=== PATIENT | male | born 1950 | race Caucasian/White ===

== ENCOUNTER 2021-04-11 06:08 | Observation (INO) ==
--- NOTE | 2021-03-30 10:03 | PAT Medication Instructions ---
Medication Instructions Date of Service March 30, 2021 Home Medications Medication Instructions Recorded Tariq Marie #1 ea 03/28/21 alfuzosin 10 mg tablet,extended release 24 hr 10 mg PO HS amlodipine 10 mg tablet 10 mg PO QAM aspirin 81 mg tablet,delayed release (Aspirin Low Dose) 162 mg PO HS carvedilol 25 mg tablet 25 mg PO BID glucosamine sulfate 500 mg tablet (Glucosamine) 1,000 mg PO QAM metformin 500 mg tablet 500 mg PO BID multivitamin 1 tab PO QAM niacin 500 mg tablet 500 mg PO HS pravastatin 40 mg tablet 40 mg PO HS lisinopril 20 mg-hydrochlorothiazide 25 mg tablet 1 tab PO QAM ASK your prescriber and surgeon aspirin 81 mg tablet,delayed release (Aspirin Low Dose) 162 mg PO HS STOP taking 2 weeks before surgery (or as soon as possible if surgery is within 2 weeks) glucosamine sulfate 500 mg tablet (Glucosamine) 1,000 mg PO QAM STOP taking 48 hours before surgery niacin 500 mg tablet 500 mg PO HS DO NOT take the morning of surgery metformin 500 mg tablet 500 mg PO BID multivitamin 1 tab PO QAM lisinopril 20 mg-hydrochlorothiazide 25 mg tablet 1 tab PO QAM Take morning of surgery With a small sip of water, OTHERWISE NOTHING TO EAT OR DRINK AFTER MIDNIGHT: amlodipine 10 mg tablet 10 mg PO QAM carvedilol 25 mg tablet 25 mg PO BID Take evening before surgery alfuzosin 10 mg tablet,extended release 24 hr 10 mg PO HS carvedilol 25 mg tablet 25 mg PO BID metformin 500 mg tablet 500 mg PO BID niacin 500 mg tablet 500 mg PO HS pravastatin 40 mg tablet 40 mg PO HS Other Notes If you have any questions please call us at [phone] or [phone] or [phone] or [phone]
--- NOTE | 2021-03-31 11:56 | Anesthesiology Consultation ---
Date of Service March 31, 2021 Assessment & Plan (1) Encounter for pre-operative examination: - Abnormal preop EKG: Notes ST/TWA, consider anterolateral ischemia on unconfirmed preop EKG. EKG forwarded to cardiology for review. Awaiting opt imization response. - Aortic stenosis: Patient reports hx of aortic stenosis under surveillance by [facility]. Discussed SAB vs. general anesthesia. Awaiting most recent cardiology office visit note and most recent ECHO. - COVID screening: Per assessment on 03/31: No known COVID-19 positive contacts or current COVID-19 related symptoms. Travel screen- returned from [place] 03/27. Patient is considering travel to [place] and [place] prior to upcoming surgery. Most recent travel in proximity to surgery will be visiting son in [place] 03/31-04/03 (son, patient and are all vaccinated). Surgeon arranging preop COVID testing (scheduled 04/07; [place]). Awaiting results. Preop COVID testing will be done 4 days prior to return from travel > will order cepheid preop for AM DOS. - Check BSG AM DOS Chart Review Chart Review: Patient seen in Pre Admission Testing Teaching & Discussion Pre-Anesthesia Teaching/Discussion Notes: Instructed NPO after midnight before surgery,except medications with 15 cc of water. Medication instructions provided according to the PAT guidelines. History Surgery Operation Date: 04/11/21 13:05 Proposed Procedures p Right Total Knee Arthroplasty - Cameron Temple MD Height/Weight Height: 5 ft 9 in Weight: 115.9 kg Allergies Allergy/AdvReac Type Severity Reaction Status Date / Time No Known Allergies Allergy Verified 03/30/21 08:58 Medications Home Medications Medication Instructions Recorded Confirmed Last Taken Wheeled Walker #1 ea 03/28/21 Unknown alfuzosin 10 mg tablet,extended 10 mg PO HS 03/28/21 03/30/21 Unknown release 24 hr amlodipine 10 mg tablet 10 mg PO QAM 03/28/21 03/30/21 Unknown aspirin 81 mg tablet,delayed 162 mg PO HS 03/28/21 03/30/21 Unknown release (Aspirin Low Dose) carvedilol 25 mg tablet 25 mg PO BID 03/28/21 03/30/21 Unknown glucosamine sulfate 500 mg tablet 1,000 mg PO QAM 03/28/21 03/30/21 Unknown (Glucosamine) metformin 500 mg tablet 500 mg PO BID 03/28/21 03/30/21 Unknown multivitamin 1 tab PO QAM 03/28/21 03/30/21 Unknown niacin 500 mg tablet 500 mg PO HS 03/28/21 03/30/21 Unknown pravastatin 40 mg tablet 40 mg PO HS 03/28/21 03/30/21 Unknown lisinopril 20 1 tab PO QAM 03/30/21 03/30/21 Unknown mg-hydrochlorothiazide 25 mg tablet Past Medical History Medical History Aortic stenosis Bone spur Neck x-ray 01/2021 noted degenerative spondylosis of the cervical spine with multilevel disc space degeneration from C3-C4 through C6-C7, loss of lordosis consistent with underlying muscle spasm > Left shoulder mild cramping/ticking sensation occasionally Diabetes NIDDM Enlarged prostate HTN (hypertension) Hypercholesteremia Long QT syndrome Found on genetic testing (Slack) > subsequent cardio workup said "not to be concerned" Exercise / Class Metabolic Activity II 4-5 Yardwork/Stairs/Walk up hill (one FS (no CP, no SOB)) Past Family History Family History Father Pre-diabetes Past Surgical History Surgical History History of colonoscopy History of hand surgery Left History of tonsillectomy History of umbilical hernia repair Infancy Past Anesthesia History No Hx of Anesthesia Complications and No Family Hx of Anesthesia Complications History of PONV No Hx of PONV and No Hx of Motion Sickness Social History Smoking Status: Former smoker tobacco type: cigarettes Do You Dip or Chew Tobacco: No Smoking End Date: Quit Spring 1982 Hx Alcohol Use: No Hx Substance Use: No substance use type: does not use Review of Systems Patient denies chest pain, shortness of breath, dyspnea on exertion, fever, chills, cough, wheezing, palpitations. Physical Exam Vital Signs VITALS BP 126/69 P 52 TEMP 97.9 SP02 96% RA RESP 16 PHYSICAL Mildly decreased cervical extension range of motion. Full TMJ range of motion. TMD 3.5 finger breaths Mallampati Score 2 Dentition: upper partial Lungs: clear throughout to auscultation Cardiac: regular rate and rhythm, III/ systolic murmur Spine: normal Carotid arteries: negative bruit Extremities: no edema Trimmed richards Lab Results Anesthesia Preop Results Results Anesthesia Widget: WBC 3.87 K/uL (4.8-10.8) L 03/31/21 Hgb 13.8 g/dL (14.0-18.0) L 03/31/21 Hct 40.6 % (42-52) L 03/31/21 Plt 146 K/uL (130-400) 03/31/21 Na 138 mmol/L (136-145) 03/31/21 K 3.8 mmol/L (3.5-5.1) 03/31/21 Cl 107 mmol/L (98-107) 03/31/21 CO2 27 mmol/L (21-32) 03/31/21 BUN 12 mg/dl (7-18) 03/31/21 Creat 0.84 mg/dl (0.6-1.4) 03/31/21 Glucose Level 140 mg/dl (70-99) H 03/31/21 PT 10.8 Seconds (9.0-12.0) 03/31/21 PTT 26.4 Seconds (21.0-31.0) 03/31/21 INR 1.1 (0.9-1.1) 03/31/21 Blood Type A Positive 03/31/21 Antibody Screen NEGATIVE 03/31/21 Lab Comments: Preop labs to be forwarded to PCP for continuity of care. Testing Electrocardiogram Date: 03/31/21 SB at 45bpm. Possible inferior infact, age undetermined. ST/TWA, consider anterolaterial ischemia. unconfirmed report. Chest X-Ray Date: 03/31/21 FINDINGS: Cardiac silhouette is upper limits of normal in size. Calcific plaque of the thoracic aorta. No pneumothorax, pleural effusion, airspace consolidation or overt pulmonary edema. Degenerative changes of the shoulders and spine. IMPRESSION: No acute process.
[~2021-04-11 06:08] MED LIST: ACETAMINOPHEN 500 MG TAB PO SCH; BUPIVACAINE LIPOSOME/PF 266 MG, BUPIVACAINE/EPINEPHRINE 50 ML, SODIUM CHLORIDE 0.9% 30 ... INFIL SCH; FAMOTIDINE 20 MG TAB PO SCH; GABAPENTIN 300 MG CAP PO SCH; LR 500ML BOLUS, THEN 15ML/HR IV SCH; LR 60ML/HR IV SCH; METOCLOPRAMIDE HCL 10 MG TABLET PO SCH; TRANEXAMIC ACID 1,000 MG **IV Intra-op IV SCH; ceFAZolin 2000MG 2,000 MG/15 ML SYR IV SCH
--- NOTE | 2021-04-11 06:57 | History & Physical Bridge Note ---
Date of Service April 11, 2021 History & Physical Bridge Note I have examined the patient, reviewed the History & Physical and in the interval since the performance of the History & Physical I have noted the following changes of clinical significance: no changes noted
[2021-04-11] MEDS ORDERED: BUPIVACAINE 0.5 % 5 MG/1 ML PF 10ML VIAL ONE (07:31)
[2021-04-11] MEDS ORDERED: BUPIVACAINE 0.25% 30 ML VIAL ONE ×2 (07:32→08:39)
[2021-04-11] MEDS ORDERED: EPINEPHrine INJ 1 MG/ML AMP ONE ×2 (07:32→08:39)
[2021-04-11] MEDS ORDERED: PROPOFOL IV EMULSION 10 MG/ML 20 ML VIAL IV ONE ×2 (07:34→07:35)
[2021-04-11] MEDS ORDERED: fentaNYL citrate 100 MCG/2 ML VIAL ONE (07:34)
[2021-04-11] MEDS ORDERED: LIDOCAINE 2% 2 ML VIAL/AMP(20MG/ML) INFIL ONE ×2 (07:34→07:35)
[2021-04-11] MEDS ORDERED: MIDAZOLAM HCL 1 MG/ML 2ML VIAL ONE (07:34)
[2021-04-11] MEDS ORDERED: ATROPINE SULFATE 0.1 MG/ML 10ML SYR IV PRN (08:14)
[2021-04-11] MEDS ORDERED: ePHEDrine sulfate 50 MG/ML AMP IV PRN (08:14)
[2021-04-11] MEDS ORDERED: fentaNYL citrate 100 MCG/2 ML VIAL IV PRN (08:14)
[2021-04-11] MEDS ORDERED: HYDROmorphone INJ 2 MG/ML SYR/VIAL IV PRN (08:14)
[2021-04-11] MEDS ORDERED: ONDANSETRON INJ 2 MG/ML 2 ML VIAL IV PRN ×2 (08:14→12:16)
[2021-04-11] MEDS ORDERED: BUPIVACAINE LIPOSOME 1.3% 266 MG/20 ML VIAL ONE (08:38)
[2021-04-11] MEDS ORDERED: SODIUM CHLORIDE 0.9% PF 50 ML VIAL ONE (08:38)
[2021-04-11] MEDS ORDERED: GLYCOPYRROLATE 0.2 MG/ML VIAL ONE (09:14)
[2021-04-11] MEDS ORDERED: KETAMINE 50 MG/5 ML SYRINGE ONE (09:17)
--- NOTE | 2021-04-11 10:51 | Post Operative Brief Note ---
PG Immediate Post Op with CF Date of Surgery April 11, 2021 Pre & Post Diagnosis Operation Date: 04/11/21 08:50 Pre-Op Diagnosis: Right Knee Osteoarthritis, Right Knee Pain Post-Op Diagnosis: Right Knee Osteoarthritis, Right Knee Pain I identified the patient and participated in the time-out.: Yes Procedure Operation Date: 04/11/21 08:50 Actual Procedures p Right Total Knee Arthroplasty(Right) - Cameron Temple MD Surgeon Cameron Temple MD Poll Watcher KASIA Fitzgerald Estimated Blood Loss 50 Findings Consistent with Post-Op Diagnosis Fluids 1000 cc Specimens Specimen Description: A: Right Knee Bone and Tissue Drains Moody Catheter Anesthesia Type Spinal MAC Complications none Disposition Accompanied Patient To Recovery: No
[2021-04-11] MEDS ORDERED: PHARMACY GLYCEMIC MGMT CONSULT PRN (11:00)
--- NOTE | 2021-04-11 11:35 | XRay Report ---
RIGHT KNEE 2 VIEWS History: Right total knee arthroplasty. Degenerative arthritis. Postop. FINDINGS: The patient is status post a right total knee arthroplasty. The hardware is intact. No frac ture or dislocation. Skin roro are in place. IMPRESSION: Right total knee arthroplasty. No evidence for hardware complication. ACT 112: Negative or not required by law. Electronically signed by: Júnior Centeno M.D. 04/11/2021 11:33 AM
--- NOTE | 2021-04-11 11:44 | Anesthesiology Progress Note ---
Date of Service April 11, 2021 Anesthesia Post Procedure Vital Signs Vital Signs: Temp Pulse Pulse Resp BP BP Pulse Ox 04/11/21 11:35 49 L 16 138/68 99 04/11/21 11:25 42 L 14 137/66 96 04/11/21 11:15 45 L 15 133/62 94 04/11/21 11:05 46 L 16 132/68 97 04/11/21 10:58 36.6 C 41 L 16 110/57 L 96 04/11/21 06:36 36.8 C 48 L 20 162/65 H 98 Pain Intensity Right Knee: Pain Intensity: 0 Transfer of Care Handoff Completed per policy Notes Mental Status: alert / awake / arousable and participated in evaluation Patient Amnestic to Procedure: Yes Nausea / Vomiting: adequately controlled Pain: adequately controlled Airway Patency, RR, SpO2: stable & adequate BP & HR: stable & adequate Hydration State: stable & adequate Anesthetic Complications: no major complications apparent and Pt Satisfied with anesthetic care
[2021-04-11] MEDS ORDERED: MAGNESIUM HYDROXIDE SUSP 30 ML UDC PO PRN (12:16)
[2021-04-11] MEDS ORDERED: CARBOHYDRATES FOR HYPOGLYCEMIA PO PRN (12:16)
[2021-04-11] MEDS ORDERED: TAMSULOSIN HCL 0.4 MG CAP PO PRN (12:16)
[2021-04-11] MEDS ORDERED: HYDROmorphone INJ 0.5 MG/0.5 ML SYR IV PRN (12:16)
[2021-04-11] MEDS ORDERED: GLUCOSE 40% GEL 15 GM TUBE PO PRN (12:16)
[2021-04-11] MEDS ORDERED: oxyCODONE HCL IR 5 MG TAB (IMMEDIATE RELEASE) PO PRN (12:16)
[2021-04-11] MEDS ORDERED: METOCLOPRAMIDE HCL INJ 5 MG/ML 2 ML VIAL IV PRN (12:16)
[2021-04-11] MEDS ORDERED: GLUCOSE 10 TABS/TUBE PO PRN (12:16)
[2021-04-11] MEDS ORDERED: DEXTROSE 50% 50 ML SYRINGE IV PRN (12:16)
[2021-04-11] MEDS ORDERED: bisacodyL 10 MG SUPP PR PRN (12:16)
[2021-04-11] MEDS ORDERED: NALOXONE HCL 0.4 MG/1 ML VIAL/CARP IV PRN (12:16)
[2021-04-11] MEDS ORDERED: ALUMINUM/MAGNESIUM SUSP 30 ML UDC PO PRN (12:16)
[2021-04-11] MEDS ORDERED: GLUCAGON FOR INJ 1 MG VIAL SQ PRN (12:16)
--- NOTE | 2021-04-11 13:05 | Pharmacy Report ---
Pharmacy Glycemic Short Note 2 - Date of Service April 11, 2021 - Glycemic Short BSG Results (Last 24 hours): 04/11/21 04/11/21 04/11/21 06:34 11:01 12:17 POC Glucose 177 H 144 H 143 H OUTPATIENT ANTIDIABETIC REGIMEN: * metformin 500 mg BID ASSESSMENT: * Mr Valera is a 71 y/o M with PMH of NIDDM who presents for R knee replacement. POD 0 with no administration of dexamethasone. * Patient's pre-op BSG was 177 mg/dL and post-op BSG was 144 mg/dL. * Start weight-based stress of 2 Novolog. * Dose of Lantus this evening if BSG > 150 mg/dL. Want tight glycemic control for post-operative state. PLAN FOR INPATIENT GLYCEMIC CONTROL: * Hold outpatient oral diabetes medications * Basal insulin * Lantus (per scale) units SQ HS * Bolus insulin * NovoLog per scale ACHS or Q6hrs while NPO * Goal Range: Low 110 mg/dL - High 140 mg/dL * Correction Factor: 20 mg/dL/unit * Nutritional / Prandial insulin per carb ratio of 1 unit per 7 grams CHO consumed PLAN FOR DISCHARGE: * HbA1C ordered
[2021-04-11] MEDS: SODIUM CHLORIDE 0.9% 1000ML 1,000 ML IV SCH ×2 (13:18→20:25)
[2021-04-11] MEDS: INSULIN ASPART 100 UNITS/ML 3 ML PEN SC SCH ×3 (14:20→20:46)
[2021-04-11] MEDS: KETOROLAC TROMETHAMINE 15 MG/ML VIAL IV SCH ×2 (14:23→20:25)
[2021-04-11] MEDS: ceFAZolin 2000MG 2,000 MG/15 ML SYR IV SCH ×2 (16:16→23:39)
[2021-04-11] MEDS: ASCORBIC ACID 500 MG TAB PO SCH (16:50)
[2021-04-11] MEDS ORDERED: TRANEXAMIC ACID / 0.7% NACL 1,000 MG/100 ML BAG IV SCH (17:00)
--- NOTE | 2021-04-11 17:26 | Operative Report ---
Post Operative Report Pre & Post Diagnosis Operation Date: 04/11/21 08:50 Pre-Op Diagnosis: Right Knee Osteoarthritis, Right Knee Pain Post-Op Diagnosis: Right Knee Osteoarthritis, Right Knee Pain I identified the patient and participated in the time-out.: Yes Procedure Operation Date: 04/11/21 08:50 Actual Procedures p Right Total Knee Arthroplasty(Right) - Cameron Temple MD Surgeon Cameron Temple MD Performance Makeup Artist KASIA Fitzgerald Estimated Blood Loss 50 Findings Consistent with Post-Op Diagnosis Operative findings revealed advanced right knee DJD. Extensive grade 4 [id number] disease in the medial and patellofemoral compartments. He had a varus deformity to his knee and about a 10 degree flexion contracture. Moderate-sized joint effusion. Fluids 1000 cc Specimens Right knee sent for pathology. Drains None Anesthesia Type Spinal MAC Complications none Disposition Accompanied Patient To Recovery: No Indications Patient is a 71-year-old gentleman with multiple medical comorbidities had a long history of right knee pain discomfort is gradually progressed over time. Failed all conservative measures. X-rays were advanced right knee DJD. Elected proceed with surgical treatment. Description of Procedure Operative implants consist of: 1. Biomet Vanguard size 70 right posterior stabilized femoral component. 2. Biomet size 79 tibial tray. 3. 10 mm posterior stabilized polyethylene insert. 4. 31 x 8 all polypatella. The patient was taken to the operating, identified, placed on the operating table supine position but a contractors were properly padded. IV antibiotics 5 by anesthesia team. Spinal anesthetic and abductor canal block provided holding area. Moody catheter was placed in sterile fashion. Right thigh turn was then placed in the right lower extremities and prepped draped in usual sterile fashion. The right leg was elevated exsanguinated with use of an Esmarch interspace at 3 mmHg. An anterior approach to the right knee was then performed through longitudinal incision centered over the patella. Sharp dissection was carried through subcutaneous this down the extensor mechanism. Medial parapatellar arthrotomy incision was made. Some subperiosteal dissection was carried out medially. The fat pad was resected beneath patella tendon. Lateral patellofemoral ligament was released. The patella subluxated laterally and the knee was flexed. The osteophytes were taken off distal femur. The ACL and PCL were then released from distal femur the tibia subluxated anteriorly. The external tibial alignment jig was then placed in the interface the tibia and adjusted 14 mm medially. Proximal tibial cut was made remove about 2 mm of bone from the most deficient aspect medial tibial plateau. Tibia was then sized to a size 79. Attention drawn the femur. The distal femur stem with a sharp drop with intramedullary canal was suction. A right 6 degree valgus cutting guide was placed but the distal femoral cutting block was pinned in place. Distal femoral cut was made to take an additional 3 mm bone off distal femur. The femur was then sized to a size 70. The AP cutting block was pinned parallel to the epicondylar axis which was 4 degrees of external rotation. The anterior cut, anterior chamfer, posterior cut, posterior chamfer cuts were made. The box cutting guide was placed in the just slight lateral and the box cut was made. The remnants of the medial and lateral menisci were excised. The osteophytes were taken off the posterior aspect of femur. A trial femoral component was placed. The tibial tray was pinned in maximum external rotation and the drill and stem punch were used to create d efect in proximal tibia for the tibial tray. Knee was then trialed and the 10 mm insert fit most appropriately. Attention drawn the patella. Nupathe the patella was cleaned of all soft tissue. Patella thickness measured 23 mm in thickness cut down to 14. Was sized to a size 31 patella. The lug holes were drilled for the 31 patella. The lateral osteophyte is moved. Patella button was placed. Knee was taken through range of motion and the patella tracked nicely with no thumbs test. Attention drawn to place the permanent components. All trial components were removed. Bone plug was placed in the distal femur limit blood loss. Double batch Palacos G cement was mixed. A Biomet Vanguard size 70 right posterior stabilized femoral component, size 79 tibial tray, a 10 mm posterior stabilized polyethylene insert, and a 31 x 8 all polypatella then cemented in place. The knee was brought out into full extension until cement hardened. Final cement check was then performed. The pericapsular tissues were injected with total 100 cc of combination of 20 cc of Exparel, 30 cc normal saline, 50 cc of quarter percent Marcaine with epinephrine. Patient did receive 1 g tranexamic acid per the tourniquet was then let down for final tourniquet time of 61 minutes. Hemostasis assured use electrocautery. Extensor mechanism closed with combination 1 PDS suture #1 Vicryl suture in [id number] fashion. The extensor mechanism checked and found to be intact the subcutaneous tissue was then closed with 2 Dexon suture in a buried knot fashion skin was closed skin roro. Leg was then cleaned dried and a sterile dressing of Xeroform, 4 x 4's, sterile cast padding, Aly bandage were applied. Patient then transferred to the recovery room in stable condition. Patient tolerated proc edure well and there were no complications. Naveen Fitzgerald, my physician executive chef assistant, was present for the entire procedure. His assistance was essential and required for appropriate patient positioning, prepping and draping, surgical exposure, performing the technical details of the operation, placement the implants, closure of the wound, and placement of the sterile bandage. I attest to the content of the Intraoperative Record and any orders documented therein. Any exceptions are noted below.
[2021-04-11] MEDS: ASPIRIN 81 MG ECTAB PO SCH (20:28)
[2021-04-11] MEDS: carvediloL 25 MG TAB PO SCH (20:31)
[2021-04-11] MEDS: DOCUSATE SODIUM 100 MG CAP PO SCH (20:32)
[2021-04-11] MEDS: TAPENTADOL HCL ER 50 MG TABCR PO SCH (20:33)
[2021-04-11] MEDS ORDERED: NIACIN 500 MG TAB PO SCH (21:00)
[2021-04-11] MEDS ORDERED: ALFUZOSIN HCL 10 MG TAB PO SCH (21:00)
[2021-04-11] MEDS ORDERED: PRAVASTATIN SOD 40 MG TAB PO SCH (21:00)
[2021-04-11] MEDS ORDERED: INSULIN GLARGINE SOLOSTAR 100 UNITS/ML 3 ML PEN SC SCH (21:00)
[2021-04-11] MEDS ORDERED: SENNA 8.6 MG TAB PO SCH (21:00)
[2021-04-11] MEDS: ACETAMINOPHEN 500 MG TAB PO SCH (22:50)
[2021-04-12] MEDS: SODIUM CHLORIDE 0.9% 1000ML 1,000 ML IV SCH (01:46)
[2021-04-12] MEDS: KETOROLAC TROMETHAMINE 15 MG/ML VIAL IV SCH ×2 (01:47→09:01)
[2021-04-12] MEDS: ACETAMINOPHEN 500 MG TAB PO SCH ×2 (06:01→13:08)
[2021-04-12 06:43] LABS: Hematocrit (blood only) 34.8 % (42-52); Hemoglobin 11.9 g/dL (14.0-18.0); Mean Corpuscular Hemoglobin 29.2 pg (25-34); Mean Corpuscular Hgb Conc 34.2 g/dL (32-36); Mean Corpuscular Volume 85.5 fL (80-100); Mean Platelet Volume 10.2 fL (7.4-10.4); Platelet Count 112 K/uL (130-400); RDW Coefficient of Variation 13.3 % (11.5-14.5); RDW Standard Deviation 41.1 fL (36.4-46.3); Red Blood Count 4.07 M/uL (4.7-6.1); White Blood Count 6.05 K/uL (4.8-10.8)
[2021-04-12 07:11] LABS: BUN Creatinine Ratio 14.3 (10-20); Calcium 7.8 mg/dl (8.5-10.1); Creatinine Clr Calc Pharmacy 117.9 ml/min; Est GFR (African American) 108.6 ml/min; Est GFR (Non-African American) 93.7 ml/min; Potassium 3.8 mmol/L (3.5-5.1)
[2021-04-12 07:15] LABS: Estimated Average Glucose 137 mg/dl; Hemoglobin A1C 6.4 % (4.5-5.6)
[2021-04-12] MEDS ORDERED: MULTIVITAMIN TAB PO SCH ×2 (09:00)
[2021-04-12] MEDS ORDERED: amLODIPine BESYLATE 5 MG TAB PO SCH (09:00)
[2021-04-12] MEDS ORDERED: LISINOPRIL/HCTZ 20/25MG 1 TAB PO SCH (09:00)
[2021-04-12] MEDS: ASPIRIN 81 MG ECTAB PO SCH (09:01)
[2021-04-12] MEDS: DOCUSATE SODIUM 100 MG CAP PO SCH (09:01)
[2021-04-12] MEDS: TAPENTADOL HCL ER 50 MG TABCR PO SCH (09:01)
[2021-04-12] MEDS: ASCORBIC ACID 500 MG TAB PO SCH (09:02)
[2021-04-12] MEDS: INSULIN ASPART 100 UNITS/ML 3 ML PEN SC SCH ×2 (09:02→13:07)
[2021-04-12] MEDS: carvediloL 25 MG TAB PO SCH (09:02)
--- NOTE | 2021-04-12 12:54 | Progress Notes ---
DATE OF SERVICE: 04/12/2021 SUBJECTIVE: A 71-year-old gentleman postop day 1 from a right knee replacement. He has done well. Had a pretty good night. Pain is controlled. Therapy has gone well. No chest pain or shortness of breath. Not feeling dizzy or lightheaded. OBJECTIVE: VITAL SIGNS: Temperature is 36.6. Vital signs are stable. PHYSICAL EXAMINATION: GENERAL: Shows a pleasant middle-aged male. He is sitting up at his bedside chair, talking to the t herapist. LUNGS: Clear to auscultation. HEART: Regular rate and rhythm. ABDOMEN: Soft, nontender, nondistended. EXTREMITIES: Grossly neurovascularly intact except as follows: Examination of the right knee reveal s the dressing to be clean, dry and intact. His leg is well aligned. He can dorsiflex and plantarfl ex his foot appropriately. He can do a pretty good straight leg raise. LABORATORY DATA: Hemoglobin 11.9. Hematocrit 34.8. Electrolytes are stable. ASSESSMENT: A 71-year-old gentleman with multiple medical comorbidities, now postoperative day 1 fro m right knee replacement, doing quite well. Therapy has gone well. Pain is controlled. He is neuro logically intact. PLAN: 1. DVT prophylaxis includes thigh-high TEDs, SCDs, and aspirin twice daily. 2. PT, OT, weightbear as tolerated. Right total knee protocol. 3. Pain control, doing pretty well with current pain regimen. 4. Disposition: Plan to discharge to home with some home health likely later today if continues to d o okay in therapy and his pain is controlled. Job ID: [id number]
--- NOTE | 2021-04-15 13:04 | Discharge Summary ---
Date of Service April 15, 2021 Discharge Data Procedures Performed Operation Date: 04/11/21 08:50 Actual Procedures p Right Total Knee Arthroplasty(Right) - Cameron Temple MD Hospital Course (1) Status post total right knee replacement: This is a 71 year old patient admitted on 04/11/21 and underwent total knee arthroplasty. He tolerated the procedure well and there were no complications. Transferred to the PACU post op and later to the orthopedic floor for further care. He was given ancef for antibiotic prophylaxis. He was also given KOBE stockings, SCDs, and aspirin for DVT prophylaxis. Hemoglobin, hematocrit, and vital signs were monitored during his hospital stay and remained stable. Did not require any blood transfusions. There were no complications during his hospital stay. By post op day #1 the patient was tolerating a diabetic diet, pain was reasonably controlled with oral pain medicine, and he was participating in physical therapy. On post op day #1 the patient was discharged home and set up with home health care. He was given printed discharge instructions including prescriptions for extra strength tylenol, aspirin, and oxycodone. Continue physical therapy, weight bearing as tolerated. Continue KOBE stockings. Follow up approximately 2 weeks post op or sooner if there are problems or concerns. Coding Level of Care Code None Diagnoses Status post total right knee replacement Z96.651
== END 2021-04-12 13:58 | disposition home health service (06) ==
LOC: ASU 06:08 → 3E 06:08

== ENCOUNTER 2021-12-07 08:20 | Observation (INO) ==
--- NOTE | 2021-12-01 12:53 | Anesthesiology Consultation ---
Date of Service December 01, 2021 Assessment & Plan (1) Encounter for pre-operative examination: - check BSG am DOS. -Aortic stenosis:Moderateper 05/2021 echo. Patient s/pRight TKA (04/11/21): SAB at L3-L4 (x1 attempt) + PNB at [facility] -Cardiology office visit (06/09/21): "The patient has been doing very well from a cardiac standpoint. Echocardiogram done prior to this visit which showed left ventricular wall ejection fraction of 50 to 55%. When this was compared to his previous echocardiogram it was felt the left ventricular ejection fraction was actually about the same on both of these. Moderate aortic stenosis was reported.. Aortic valve stenosis.. This remained stable.. Patient is asymptomatic.. 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 This is borderline today. Continue to monitor.. Thoracic aortic aneurysm without rupture.. This is only mildly enlarged. We can continue to follow with echocardiograms."Plan to repeat echo for surveillance in 1-2 years. F/U one year recommended. - COVID screening: Per insight leader on 11/30/2021: Travel screen negative, no known COVID-19 positive contacts or current COVID-19 related symptoms in past 2 weeks. Patient vaccinated. Surgeon arranging preop COVID testing, scheduled 12/05/2021. Awaiting results. Chart Review Chart Review: Acceptable Risk for Surgery and Patient NOT seen in Pre Admission Testing History Surgery Operation Date: 12/07/21 10:55 Proposed Procedures p Left Total Knee Replacement - Cameron Temple MD Surgery re-scheduled since 06/10/2021 PAT evaluation. Height/Weight Height: 5 ft 9 in Weight: 115.666 kg Allergies Allergy/AdvReac Type Severity Reaction Status Date / Time No Known Allergies Allergy Verified 08/23/21 11:20 Medications Home Medications Medication Instructions Recorded Confirmed Last Taken Wheeled Walker #1 ea 03/28/21 11/30/21 Unknown alfuzosin 10 mg tablet,extended 10 mg PO HS 03/28/21 11/30/21 04/10/21 22:00 release 24 hr amlodipine 10 mg tablet 10 mg PO QAM 03/28/21 11/30/21 04/11/21 04:30 carvedilol 25 mg tablet 25 mg PO BID 03/28/21 11/30/21 04/11/21 04:30 metformin 500 mg tablet 500 mg PO BID 03/28/21 11/30/21 04/10/21 17:30 multivitamin 1 tab PO QAM 03/28/21 11/30/21 04/10/21 07:00 niacin 500 mg tablet 500 mg PO HS 03/28/21 11/30/21 04/08/21 22:00 pravastatin 40 mg tablet 40 mg PO HS 03/28/21 11/30/21 04/10/21 22:00 lisinopril 20 1 tab PO QAM 03/30/21 11/30/21 04/10/21 07:00 mg-hydrochlorothiazide 25 mg tablet aspirin 81 mg tablet,delayed 81 mg PO BID 06/03/21 11/30/21 Unknown release amoxicillin 500 mg tablet 2,000 mg PO ONCE #4 tab 06/08/21 11/30/21 Unknown antiarthritic combination no.2 900 900 mg PO QAM 11/30/21 11/30/21 Unknown mg tablet (glucosamine-chondroitin) Past Medical History Medical History Aortic stenosis Moderate aortic stenosis (MG 13.9 mmHg, CARSON 1.35 cm) per 05/2021 echo Bone spur Neck x-ray 01/2021 noted degenerative spondylosis of the cervical spine with multilevel disc space degeneration from C3-C4 through C6-C7, loss of lordosis consistent with underlying muscle spasm > Left shoulder mild cramping/ticking sensation occasionally Diabetes NIDDM Enlarged prostate HTN (hypertension) Hypercholesteremia Long QT syndrome Found on genetic testing ([facility]) > subsequent cardio workup said "not to be concerned" Exercise / Class Metabolic Activity II 4-5 Yardwork/Stairs/Walk up hill Past Family History Family History Father Pre-diabetes Other No family history of adverse response to anesthesia Past Surgical History Surgical History History of colonoscopy History of hand surgery Left History of throat surgery Benign lesion excision History of tonsillectomy History of total knee replacement Right TKA (04/11/21): SAB at L3-L4 (x1 attempt) + PNB at [facility] History of umbilical hernia repair Infancy Social History Smoking Status: Former smoker tobacco type: cigarettes Do You Dip or Chew Tobacco: No Smoking End Date: 1982 Hx Alcohol Use: No Hx Substance Use: No substance use type: does not use Review of Systems Patient denied chest pain, shortness of breath, dyspnea on exertion, fever, chills, cough, wheezing, palpitations. Physical Exam Vital Signs VITALS (from 06/10/2021 PAT) BP 133/77 P 58 TEMP 98.1 SP02 96%RA RESP 16 PHYSICAL (from 06/10/2021 PAT) Full cervical extension range of motion. Full TMJ range of motion. TMD 3.5 finger breaths Mallampati Score 2 Dentition: partial upper Lungs: clear throughout to auscultation Cardiac: regular rate and rhythm,III/ systolic murmur Spine: normal Carotid arteries: negative bruit Extremities: no edema Lab Results Anesthesia Preop Results Results Anesthesia Widget: WBC 6.10 K/uL (4.8-10.8) 11/14/21 Hgb 13.6 g/dL (14.0-18.0) L 11/14/21 Hct 39.6 % (42-52) L 11/14/21 Plt 154 K/uL (130-400) 11/14/21 Na 138 mmol/L (136-145) 11/14/21 K 3.7 mmol/L (3.5-5.1) 11/14/21 Cl 105 mmol/L (98-107) 11/14/21 CO2 26 mmol/L (21-32) 11/14/21 BUN 20 mg/dl (6-23) 11/14/21 Creat 0.90 mg/dl (0.6-1.4) 11/14/21 Glucose Level 104 mg/dl (70-99(Fasting)) H 11/14/21 PT 10.6 Seconds (9.0-12.0) 11/14/21 INR 1.0 (0.9-1.1) 11/14/21 Blood Type A Positive 11/14/21 Antibody Screen NEGATIVE 11/14/21 Testing Electrocardiogram Date: 06/09/21 Sinus rhythm with occasional PVCs and PACs, rate 65 bpm Possible inferior infarct cited on or before 06/08/2020 Prolonged QT Chest X-Ray Date: 03/31/21 FINDINGS: Cardiac silhouette is upper limits of normal in size. Calcific plaque of the thoracic aorta. No pneumothorax, pleural effusion, airspace consolidation or overt pulmonary edema. Degenerative changes of the shoulders and spine. IMPRESSION: No acute process. Echocardiogram Date: 06/07/21 LVEF 50-55% (LVEF was underestimated on previous study per report). Normal global function of the left ventricle. Basal inferior segment is abnormal. Mild concentric LVH. Grade 1 diastolic dysfunction. Moderate aortic stenosis (MG 13.9 mmHg, CARSON 1.35 cm).
--- NOTE | 2021-12-04 14:43 | History and Physical Report ---
DATE OF ADMISSION: 12/07/2021. CHIEF COMPLAINT: Persistent left knee pain and discomfort. HISTORY OF PRESENT ILLNESS: The patient is a 71-year-old gentleman who presents now for surgical treatment of his left knee. He is now about 7 months or so out from a right knee replacement and has done well from this. He has got a long history of knee problems. He has been through extensive conservative treatment in the past. He describes global pain in his left knee. It is increased with weightbearing. The more he is on it, the more it hurts. He has a limited walking tolerance. He would like to have his knee fixed. Very happy with the right knee. PAST MEDICAL HISTORY: Significant for: 1. Diabetes. 2. Aortic stenosis, followed by a processing specialist in [place] with a recent echo, which is stable. 3. Long QT syndrome, stable. 4. Hypertension. 5. Elevated cholesterol. 6. Obesity with BMI of 38. 7. BPH. PAST SURGICAL HISTORY: Includes: 1. Umbilical hernia repair. 2. Tonsillectomy. 3. Left knee replacement done on 04/11/2021. ALLERGIES: None. CURRENT MEDICATIONS: 1. Tylenol. 2. Alfuzosin. 3. Amlodipine. 4. Aspirin. 5. Carvedilol. 6. Lisinopril. 7. Metformin. 8. Multivitamin. 9. Niacin. 10. Pravastatin. SOCIAL HISTORY: A 71-year-old male. He is from [place]. He is . Does not smoke. No alcohol intake. FAMILY HISTORY: Noncontributory. REVIEW OF SYSTEMS: Significant for diabetes. Denies any chest pain or shortness of breath. He does have aortic stenosis, which is stable. Moderate level. No history of DVT or PE. PHYSICAL EXAMINATION: GENERAL: Shows a pleasant middle-aged male. Looks to be in pretty good health. HEENT: Benign. NECK: Supple. No lymphadenopathy. LUNGS: Clear to auscultation. HEART: Has a regular rate and rhythm. ABDOMEN: Soft, nontender, nondistended. EXTREMITIES: Grossly neurovascularly intact except as follows. Examination of both knees reveals the patient walks with just a slight bit of a limp. Examination of the left knee reveals a varus alignment to his knee. It is tender over the medial joint space. Small knee effusion. Range of motion is about a 5-120. No instability. Examination of the right knee reveals a well-healed incision. Minimal swelling. Range of motion is 0 to 120. Good straight leg raise. X-RAYS: X-rays of the left knee reveal advanced medial compartment DJD. He has got complete loss of his medial joint space. He has got osteophytes medially. ASSESSMENT: A 71-year-old gentleman now about 7 months out from a right knee replacement with several medical comorbidities including aortic stenosis, long QT syndrome, diabetes, hypertension, elevated cholesterol, obesity, benign prostatic hyperplasia with advanced left knee degenerative joint disease. He has failed conservative measures and would like to have his left knee replaced. PLAN: We are going to proceed with left knee replacement. The risks and benefits of this procedure were explained to the patient include but not limited to DVT, PE, , infection, neurological injury, vascular injury, bleeding problem, pain, limited range of motion, stiffness, failure to relieve her symptoms, incomplete relief of symptoms, need for further surgery in the future, fracture, leg length inequality, nerve palsy, etc. The patient understands and desires to proceed. Informed consent was obtained. I did talk to him about holding his lisinopril the morning of surgery. He should take his Carvedilol. He will hold the metformin as well. As far as discharge plans, he is planning to be discharged to home and use [facility] program. Job ID: [id number] [facility]
[~2021-12-07 08:20] MED LIST changes: +BUPIVACAINE 0.5 % 5 MG/1 ML PF 10ML VIAL ONE; +MIDAZOLAM HCL 1 MG/ML 2ML VIAL ONE
--- NOTE | 2021-12-07 09:03 | History & Physical Bridge Note ---
Date of Service December 07, 2021 History & Physical Bridge Note I have examined the patient, reviewed the History & Physical and in the interval since the performance of the History & Physical I have noted the following changes of clinical significance: no changes noted
[2021-12-07] MEDS ORDERED: ePHEDrine sulfate 50 MG/ML AMP IV PRN (10:05)
[2021-12-07] MEDS ORDERED: fentaNYL citrate 100 MCG/2 ML VIAL IV PRN (10:05)
[2021-12-07] MEDS ORDERED: ATROPINE SULFATE 0.1 MG/ML 10ML SYR IV PRN (10:05)
[2021-12-07] MEDS ORDERED: HYDROmorphone INJ 2 MG/ML SYR/VIAL IV PRN (10:05)
[2021-12-07] MEDS ORDERED: ONDANSETRON INJ 2 MG/ML 2 ML VIAL IV PRN ×2 (10:05→14:22)
[2021-12-07] MEDS ORDERED: SODIUM CHLORIDE 0.9% PF 50 ML VIAL ONE (10:33)
[2021-12-07] MEDS ORDERED: BUPIVACAINE/EPINEPHRINE 0.25% 1:200,000 30 ML VIAL ONE (10:33)
[2021-12-07] MEDS ORDERED: BUPIVACAINE LIPOSOME 1.3% 266 MG/20 ML VIAL ONE (10:33)
[2021-12-07] MEDS ORDERED: LIDOCAINE 2% 2 ML VIAL/AMP(20MG/ML) INFIL ONE (10:56)
[2021-12-07] MEDS ORDERED: PROPOFOL IV EMULSION 10 MG/ML 20 ML VIAL IV ONE (10:57)
[2021-12-07] MEDS ORDERED: ONDANSETRON INJ 2 MG/ML 2 ML VIAL ONE (10:57)
[2021-12-07] MEDS ORDERED: GLYCOPYRROLATE 0.2 MG/ML VIAL ONE (10:57)
[2021-12-07] MEDS ORDERED: ePHEDrine sulfate 50 MG/ML AMP ONE (11:24)
[2021-12-07] MEDS ORDERED: WATER, STERILE FOR INJ 10 ML VIAL ONE (11:24)
--- NOTE | 2021-12-07 12:49 | Operative Report ---
PG Post Operative Report Pre & Post Diagnosis Operation Date: 12/07/21 10:55 Pre-Op Diagnosis: Left Knee Advanced Degenerative Joint Disease Post-Op Diagnosis: Left Knee Advanced Degenerative Joint Disease I identified the patient and participated in the time-out.: Yes Procedure Operation Date: 12/07/21 10:55 Actual Procedures p Left Total Knee Arthroplasty(Left) - Cameron Temple MD Surgeon Cameron Temple MD Head Housekeeper Naveen Fitzgerald PA-C Estimated Blood Loss 50 Findings Consistent with Post-Op Diagnosis Operative findings were advanced left knee DJD. He had extensive grade 4 [id number]-[id number] disease most severe in the medial compartment but some focal changes elsewhere. He had a varus deformity to his knee. Slight flexion contracture. Moderate-sized joint effusion. Fluids 1400 cc Specimens Left knee sent for pathology Drains None Anesthesia Type Spinal MAC Complications none Disposition Accompanied Patient To Recovery: No Indications Patient is a 71-year-old gentleman said a long history of knee pain and discomfort. They have been through extensive conservative treatment which became less successful over time. He had his right knee replaced back in March last year and is done next from strongly well from that. He continued be limited by left knee pain. He elected to his left knee replacement. Description of Procedure Operative implants consist of: 1. Biomet Vanguard size 67.5 left posterior stabilized femoral component. 2. Biomet size 79 tibial tray. 3. 10 mm posterior stabilized polyethylene insert 4. 34 x 8 and half all polypatella. The patient was taken to the operating, identified, and placed on the operating table supine position protectors were properly padded. IV antibiotics 5 by anesthesia team. Spinal anesthetic and abductor canal block and provided in the holding area. A Moody catheter was placed in sterile fashion. A left thigh turn was then placed. The left lower extremity was then prepped and draped in usual sterile fashion. The left leg was elevated exsanguinated with use of an Esmarch in terms playset 300 mmHg. An anterior approach to the left knee was then performed through longitudinal incision centered over the patella. Sharp dissection was got through subcutaneous tissue down the extensor mechanism. A medial parapatellar arthrotomy incision was made. Some subperiosteal dissection was carried out medially. The fat pad was dissected beneath patella tendon. The lateral patellofemoral ligament was released. The knee was flexed. The patella was subluxated laterally. The osteophytes taken off distal femur. The ACL and PCL were then released from distal femur the tibia subluxated anteriorly. The external tibial alignment jig was then placed in the interface the tibia and adjusted 14 mm medially. Proximal tibial cut was made to remove about a millimeter or 2 of bone from most deficient aspect medial tibial plateau. Some osteophytes taken off medial and posterior medially. Tibia sized to a size 79. Attention drawn the femur. The distal femur was entered with a sharp drill. Intramedullary canal was suction. A left 6 degree valgus cutting guide was placed. Distal femoral cutting block was pinned in place. Distal femoral cut was made to take an additional 3 mm of bone off the distal femur. The femur was then sized to a size 67.5. Sized almost exactly to a 67.5. The AP cutting block was pinned parallel to the epicondylar axis which was 5 degrees of external rotation. Anterior cut, anterior chamfer, posterior cut, posterior chamfer cuts were made. The box cutting guide was placed in the just slight lateral box cut was made. The knee was flexed. The remnants of the medial and lateral menisci were excised. The osteophyte taken off the posterior aspect the femur. A trial femoral component was placed. The tibial tray was pinned in maximum external rotation and the drill and stem punch used to create defect in proximal tibia for the tibial tray. Knee was then trialed and the 10 mm insert fit most appropriately. Attention drawn the patella. The patella was cleaned of all soft tissues. Patella thickness measured 22 mm in thickness was cut down to 14. Sized to a size 34 patella. The lug holes were drilled for the 34 patella. The lateral osteophyte is moved. Patella button was placed. Knee was taken through range of motion patella tracked nicely with no thumbs test. Attention drawn to place the permanent components. All trial components were removed. Bone plug was placed in the distal femur limit blood loss. Double batch Palacos G cement was mixed. A Biomet Vanguard size 67.5 left posterior stabilized femoral component, size 79 tibial tray, a 10 mm posterior stabilized polyethylene insert, and a 34 x 8 and half all polypatella then cemented in place. The knee was brought out into full extension until cement hardened. Final cement check was then performed. The pericapsular tissues were injected with total 100 cc of combination of 20 cc of Exparel, 30 cc normal saline, 50 cc of quarter percent Marcaine with ep inephrine. Patient did receive 1 g tranexamic acid. The tourniquet was then let down for final tourniquet time 59 minutes but hemostasis surgeons electrocautery. Extensor mechanism closed with combination 1 PDS suture #1 Vicryl suture in [id number]-[id number] fashion for the extensor mechanism checked found to be intact with subcutaneous tissue then closed with 2 Dexon suture in a buried knot fashion skin was closed skin roro. Leg was then cleaned and dried and a sterile dressing with Xeroform, 4 x 4's, sterile cast padding, Aly bandage were applied. The patient then transferred to the recovery room in stable condition. Patient tolerated the procedure well and there were no complications. Naveen Fitzgerald, my physician health care assistant, was present for the entire procedure. His assistance was essential and required for appropriate patient positioning, prepping and draping, surgical exposure, performing the technical details of the operation, placement the implants, closure of the wound, and placement of the sterile bandage. I attest to the content of the Intraoperative Record and any orders documented therein. Any exceptions are noted below.
--- NOTE | 2021-12-07 13:00 | XRay Report ---
LEFT KNEE 2 VIEWS History: Left total knee arthroplasty. Degenerative arthritis. Postop. FINDINGS: The patient is status post a left total knee arthroplasty. The hardware is intact. No fract ure or dislocation. Skin are in place. IMPRESSION: Left total knee arthroplasty. No evidence for hardware complication. ACT 112: Negative or not required by law. Electronically signed by: Júnior Centeno M.D. 12/07/2021 12:58 PM
--- NOTE | 2021-12-07 13:53 | Anesthesiology Progress Note ---
Date of Service December 07, 2021 Anesthesia Post Procedure Vital Signs Vital Signs: Temp Pulse Pulse Resp BP Pulse Ox 12/07/21 13:45 53 L 12 119/82 94 12/07/21 13:35 51 L 20 121/69 94 12/07/21 13:25 36.8 C 52 L 12 137/70 96 12/07/21 13:15 51 L 14 124/64 98 12/07/21 13:05 53 L 13 139/72 97 12/07/21 12:55 50 L 17 117/66 96 12/07/21 12:45 54 L 16 118/62 100 12/07/21 12:35 36.3 C L 55 L 13 102/52 L 100 12/07/21 08:45 36.7 C 47 L 20 145/68 H 95 Pain Intensity Left Knee: Pain Intensity: 0 Transfer of Care Handoff Completed per policy Notes Mental Status: alert / awake / arousable and participated in evaluation Patient Amnestic to Procedure: Yes Nausea / Vomiting: adequately controlled Pain: adequately controlled Airway Patency, RR, SpO2: stable & adequate BP & HR: stable & adequate Hydration State: stable & adequate Anesthetic Complications: no major complications apparent and Pt Satisfied with anesthetic care
[2021-12-07] MEDS ORDERED: HYDROmorphone INJ 0.5 MG/0.5 ML SYR IV PRN (14:22)
[2021-12-07] MEDS ORDERED: MAGNESIUM HYDROXIDE SUSP 30 ML UDC PO PRN (14:22)
[2021-12-07] MEDS ORDERED: NALOXONE HCL 0.4 MG/1 ML VIAL/CARP IV PRN (14:22)
[2021-12-07] MEDS ORDERED: ALUMINUM/MAGNESIUM SUSP 30 ML UDC PO PRN (14:22)
[2021-12-07] MEDS ORDERED: GLUCAGON FOR INJ 1 MG VIAL SQ PRN (14:22)
[2021-12-07] MEDS ORDERED: bisacodyL 10 MG SUPP PR PRN (14:22)
[2021-12-07] MEDS ORDERED: CARBOHYDRATES FOR HYPOGLYCEMIA PO PRN (14:22)
[2021-12-07] MEDS ORDERED: PHARMACY GLYCEMIC MGMT CONSULT PRN (14:22)
[2021-12-07] MEDS ORDERED: GLUCOSE 10 TABS/TUBE PO PRN (14:22)
[2021-12-07] MEDS ORDERED: GLUCOSE 40% GEL 15 GM TUBE PO PRN (14:22)
[2021-12-07] MEDS ORDERED: DEXTROSE 50% 50 ML SYRINGE IV PRN (14:22)
[2021-12-07] MEDS ORDERED: oxyCODONE HCL IR 5 MG TAB (IMMEDIATE RELEASE) PO PRN (14:22)
[2021-12-07] MEDS ORDERED: METOCLOPRAMIDE HCL INJ 5 MG/ML 2 ML VIAL IV PRN (14:22)
[2021-12-07] MEDS ORDERED: ONDANSETRON 4 MG OD TAB PO PRN (14:49)
[2021-12-07] MEDS: KETOROLAC TROMETHAMINE 15 MG/ML VIAL IV SCH ×2 (15:43→21:11)
[2021-12-07] MEDS: ACETAMINOPHEN 500 MG TAB PO SCH ×2 (15:43→21:14)
[2021-12-07] MEDS: SODIUM CHLORIDE 0.9% 1000ML 1,000 ML IV SCH (15:44)
[2021-12-07] MEDS: ceFAZolin 2000MG 2,000 MG/15 ML SYR IV SCH (17:23)
[2021-12-07] MEDS: ASCORBIC ACID 500 MG TAB PO SCH (17:25)
[2021-12-07] MEDS: INSULIN ASPART PER UNIT SC SCH ×2 (17:41→21:11)
[2021-12-07] MEDS ORDERED: TRANEXAMIC ACID / 0.7% NACL 1,000 MG/100 ML BAG IV SCH (18:45)
[2021-12-07] MEDS ORDERED: PRAVASTATIN SOD 40 MG TAB PO SCH (21:00)
[2021-12-07] MEDS ORDERED: ALFUZOSIN HCL 10 MG TAB PO SCH (21:00)
[2021-12-07] MEDS ORDERED: ASPIRIN 81 MG ECTAB PO SCH (21:00)
[2021-12-07] MEDS ORDERED: NIACIN 500 MG TAB PO SCH (21:00)
[2021-12-07] MEDS ORDERED: SENNA 8.6 MG TAB PO SCH (21:00)
[2021-12-07] MEDS: ASPIRIN 81 MG ECTAB PO SCH (21:11)
[2021-12-07] MEDS: carvediloL 25 MG TAB PO SCH (21:11)
[2021-12-07] MEDS: DOCUSATE SODIUM 100 MG CAP PO SCH (21:11)
[2021-12-08] MEDS: SODIUM CHLORIDE 0.9% 1000ML 1,000 ML IV SCH (02:19)
[2021-12-08] MEDS: ceFAZolin 2000MG 2,000 MG/15 ML SYR IV SCH (02:21)
[2021-12-08] MEDS: KETOROLAC TROMETHAMINE 15 MG/ML VIAL IV SCH ×3 (02:21→13:47)
[2021-12-08 05:40] LABS: Hematocrit (blood only) 35.6 % (42-52); Hemoglobin 12.4 g/dL (14.0-18.0); Mean Corpuscular Hemoglobin 29.7 pg (25-34); Mean Corpuscular Hgb Conc 34.8 g/dL (32-36); Mean Corpuscular Volume 85.2 fL (80-100); Mean Platelet Volume 9.6 fL (7.4-10.4); Platelet Count 114 K/uL (130-400); RDW Coefficient of Variation 13.6 % (11.5-14.5); RDW Standard Deviation 42.1 fL (36.4-46.3); Red Blood Count 4.18 M/uL (4.7-6.1); White Blood Count 6.46 K/uL (4.8-10.8)
[2021-12-08] MEDS: ACETAMINOPHEN 500 MG TAB PO SCH ×2 (05:41→13:47)
[2021-12-08 06:01] LABS: BUN Creatinine Ratio 21.7 (10-20); Calcium 8.5 mg/dl (8.5-10.1); Creatinine Clr Calc Pharmacy 120.6 ml/min; Est GFR (African American) 109.9 ml/min; Est GFR (Non-African American) 94.8 ml/min; Potassium 3.9 mmol/L (3.5-5.1)
[2021-12-08] MEDS: carvediloL 25 MG TAB PO SCH (07:11)
[2021-12-08 07:55] LABS: Estimated Average Glucose 120 mg/dl; Hemoglobin A1C 5.8 % (4.5-5.6)
[2021-12-08] MEDS: ASCORBIC ACID 500 MG TAB PO SCH (08:53)
[2021-12-08] MEDS: ASPIRIN 81 MG ECTAB PO SCH (08:53)
[2021-12-08] MEDS: DOCUSATE SODIUM 100 MG CAP PO SCH (08:54)
[2021-12-08] MEDS: INSULIN ASPART PER UNIT SC SCH ×2 (08:59→13:12)
[2021-12-08] MEDS ORDERED: NON-FORMULARY MEDICATION (Multivitamin tablet) PO SCH (09:00)
[2021-12-08] MEDS ORDERED: TAMSULOSIN HCL 0.4 MG CAP PO SCH (09:00)
[2021-12-08] MEDS ORDERED: DOCUSATE SODIUM/SENNA 50/8.6MG TAB PO SCH (09:00)
[2021-12-08] MEDS ORDERED: amLODIPine BESYLATE 5 MG TAB PO SCH (09:00)
[2021-12-08] MEDS ORDERED: MULTIVITAMIN TAB PO SCH (09:00)
[2021-12-08] MEDS ORDERED: LISINOPRIL/HCTZ 20/25MG 1 TAB PO SCH (09:00)
--- NOTE | 2021-12-08 09:13 | Pharmacy Report ---
Pharmacy Glycemic Short Note 2 - Date of Service December 08, 2021 - Glycemic Short BSG Results (Last 24 hours): 12/07/21 12/07/21 12/07/21 12:37 16:47 20:38 Glucose POC Glucose 131 H 108 H 97 12/08/21 12/08/21 05:21 08:03 Glucose 121 H POC Glucose 132 H OUTPATIENT ANTIDIABETIC REGIMEN: * Metformin 500mg BID * A1c: 5.8% ASSESSMENT: * Patient POD 1 from Left Total Knee Arthroplasty * Patient well controlled thus far on a moderate stress NovoLog regimen. Will continue and slightly loosen CR/CF. Patient is tolerating a diet. PLAN FOR INPATIENT GLYCEMIC CONTROL: * Hold outpatient oral diabetes medications * Basal insulin * none at this time * Bolus insulin * NovoLog per scale ACHS or Q6hrs while NPO * Goal Range: Low 110 mg/dL - High 140 mg/dL * Correction Factor: 25 mg/dL/unit * Nutritional / Prandial insulin per carb ratio of 1 unit per 10 grams CHO consumed
--- NOTE | 2021-12-08 12:08 | Progress Notes ---
DATE OF SERVICE: 12/08/2021 SUBJECTIVE: A 71-year-old gentleman now postoperative day 1 from left knee replacement. He is doing pretty well. He had a good night. Denies any significant pain. No chest pain or shortness of nico th. Not feeling dizzy or lightheaded. OBJECTIVE: VITAL SIGNS: Temperature 36.4. Vital signs are stable. PHYSICAL EXAMINATION: GENERAL: Shows a pleasant middle-aged male. He is sitting up in bed this morning and looks quite co mfortable. LUNGS: Clear to auscultation. HEART: Regular rate and rhythm. ABDOMEN: Soft, nontender, nondistended. EXTREMITIES: Grossly neurovascularly intact except as follows: Examination of the left leg reveals the dressing to be clean, dry and intact. He can dorsiflex and plantarflex his foot appropriately. He is neurologically intact. LABORATORY DATA: Hemoglobin 12.4. Hematocrit 35.6. Electrolytes are stable. ASSESSMENT: A 71-year-old gentleman postoperative day 1 from left knee replacement, doing pretty wel l. Pain is controlled. He is neurologically intact. PLAN: 1. DVT prophylaxis includes thigh-high TEDs, SCDs, and aspirin twice a day. 2. PT, OT, weightbear as tolerated. Left total knee protocol. 3. Pain control, doing well with current pain regimen. 4. Disposition: Plan to discharge to home with some home health later today. Job ID: [id number]
--- NOTE | 2021-12-11 10:57 | Discharge Summary ---
Date of Service December 11, 2021 Discharge Data Procedures Performed Operation Date: 12/07/21 10:55 Actual Procedures p Left Total Knee Arthroplasty(Left) - Cameron Temple MD Hospital Course (1) Status post total left knee replacement: Oliver is a 71 year old patient admitted on 12/07/21 and underwent total knee arthroplasty. He tolerated the procedure well and there were no complications. Transferred to the PACU post op and later to the orthopedic floor for further care. He was given ancef for antibiotic prophylaxis. He was also given KOBE stockings, SCDs, and aspirin for DVT prophylaxis. Hemoglobin, hematocrit, and vital signs were monitored during his hospital stay and remained stable. Did not require any blood transfusions. There were no complications during his hospital stay. By post op day #1 the patient was tolerating a regular diet, pain was reasonably controlled with oral pain medicine, and he was participating in physical therapy. On post op day #1 the patient was discharged home and set up with home health care. He was given printed discharge instructions including prescriptions for extra strength tylenol, aspirin, toradol, zofran, and oxycodone. Continue physical therapy, weight bearing as tolerated. Continue KOEB stockings. Follow up approximately 2 weeks post op or sooner if there are problems or concerns. Coding Level of Care Code None Diagnoses Status post total left knee replacement Z96.652
== END 2021-12-08 14:51 | disposition home health service (06) ==
LOC: 3E 08:20 → ASU 08:20
DX: M17.12 Unilateral primary osteoarthritis, left knee; E78.00 Pure hypercholesterolemia, unspecified; E11.9 Type 2 diabetes mellitus without complications; Z96.651 Presence of right artificial knee joint; M79.4 Hypertrophy of (infrapatellar) fat pad; Z79.899 Other long term (current) drug therapy; Z79.84 Long term (current) use of oral hypoglycemic drugs; Z79.82 Long term (current) use of aspirin; I10 Essential (primary) hypertension